=== PATIENT | female | born 1970 | race Caucasian/White ===

== ENCOUNTER → 2018-05-30 12:30 | Outpatient (CLI) | payer OTHER, MEDICAID, SELFPAY ==
--- NOTE | 2018-05-30 | DI.RAD.S_ITS ---
PROCEDURE: XR CHEST 2V INDICATIONS: COUGH,DYSPNEA TECHNIQUE: 2 views of the chest were acquired. COMPARISON: None. FINDINGS: Surgical changes and devices: None. Lungs and pleura: No pleural effusions or pneumothorax. Lungs are clear but volumes are large. Mediastinum: Mediastinal contours are normal. Heart size is normal. Bones and chest wall: No suspicious bony abnormalities. Soft tissues appear unremarkable. IMPRESSION: Source of cough and dyspnea is not seen however the lung volumes are large and COPD is suspected. Dictated by: Hemant Davis M.D. on 05/30/2018 at 13:17 Approved by: Hemant Davis M.D. on 05/30/2018 at 13:30
== END ==
PROVIDERS: Visit Provider Family Medicine
DX: R05 Cough (principal); R06.00 Dyspnea, unspecified
CPT/HCPCS: 71046